=== PATIENT | female | born 1995 | race African-American/Black ===

== ENCOUNTER 2018-06-29 09:31 | Emergency (ER) | payer MEDICAID ==
[~2018-06-29] VITALS: Ht 167.6 cm; Wt 54.0 kg
[2018-06-29] MEDS ORDERED: NKM (09:37)
[2018-06-29] MEDS ORDERED: DiphenhydrAMINE 50mg/ml Inj IVP ONE (10:00)
[2018-06-29] MEDS ORDERED: Metoclopramide 10mg/2ml Inj IVP ONE (10:00)
[2018-06-29] MEDS ORDERED: Morphine Sulfate 2mg/ml Inj(IV/IM USE ONLY) IVP ONE (10:00)
--- NOTE | 2018-06-29 10:09 | Emergency Room Report ---
History of Present Illness General Chief Complaint: Complications Source: Patient Present Illness HPI Patient presents with suprapubic pain. This has been going on for at least 2 days. She's been waking up with nausea also. She's not taking any medication. She states the pain is 10/10. There's been no bleeding. She did a test is positive recently. She does have a child that's 1 years old at home she denies any dysuria or discharge. She does not know her blood type. No chest pain, palpitations, vomiting, diarrhea, dysuria, shortness of breath, depression, visual changes, headache. Allergies: Coded Allergies: No Known Allergies (Unverified , 06/29/18) Patient History Past Medical History: see triage record Social History Narrative with boyfriend Last Menstrual Period: PT. UNSURE Now: Yes - PT. UNSURE HOW FAR ALONG SHE IS Reviewed Nursing Documentation: PMH: Agreed; PSxH: Agreed Nursing Documentation-PMH Past Medical History: No Stated History Review of Systems All Other Systems: negative except mentioned in HPI Physical Exam Vital Signs Date Time Temp Pulse Resp B/P (MAP) Pulse Ox O2 Delivery O2 Flow Rate FiO2 06/29/18 09:34 98.4 69 14 117/60 100 Room Air Sp02 EP Interpretation: reviewed, normal General Appearance: well appearing, no apparent distress, GCS 15 Head: normocephalic Eyes: bilateral eye normal inspection, bilateral eye PERRL ENT: moist mucus membranes Neck: supple Respiratory: lungs clear, normal breath sounds Cardiovascular #1: regular rate, rhythm Cardiovascular #2: 2+ radial (R) Gastrointestinal: normal inspection, normal bowel sounds, no mass, non- distended, tenderness - Suprapubic more on the left Genitourinary: no CVA tenderness, deferred - For ultrasound Musculoskeletal: back normal, gait/station normal, normal range of motion Neurologic: alert, oriented x3, nystagmus Psychiatric: mood/affect normal Skin: normal inspection, warm/dry Medical Decision Making Diagnostic Impression: Primary Impression: Pelvic pain Additional Impression: Threatened miscarriage ER Course Patient presents with suprapubic pain. Differential includes ectopic, urinary tract infection, early , constipation, ovarian cyst amongst others. Evaluation will be with labs, urinalysis and also ultrasound. The patient be treated with IV analgesics and hydration. Patient initially was refusing blood because she didn't want an IV. I discussed this with her and she agreed to have an IV done. Labs remarkable for normal white count and quant hCG of 4000. Urinalysis clear. Blood type a positive. Ultrasound with 4.5 mm fluid collection with double decidual sac in the uterus consistent with an intrauterine moderate free fluid in the cul-de- sac. 1.2 cm dominant follicle small cyst in the left ovary. Patient's pain is improved with treatment. Discussed ultrasound findings and the need for follow-up with the patient. Patient stable for outpatient observation and treatment. Laboratory Tests Test 06/29/18 10:10 White Blood Count 8.7 K/UL (4.8-10.8) Red Blood Count 5.18 M/UL (4.20-5.40) Hemoglobin 13.6 G/DL (12.0-16.0) Hematocrit 43.6 % (37.0-47.0) Mean Corpuscular Volume 84 FL (80-99) Mean Corpuscular Hemoglobin 26.3 PG (27.0-31.0) L Mean Corpuscular Hemoglobin Concent 31.2 G/DL (32.0-36.0) L Red Cell Distribution Width 14.9 % (11.6-14.8) H Platelet Count 391 K/UL (150-450) Mean Platelet Volume 8.1 FL (6.5-10.1) Neutrophils (%) (Auto) 70.7 % (45.0-75.0) Lymphocytes (%) (Auto) 21.6 % (20.0-45.0) Monocytes (%) (Auto) 4.5 % (1.0-10.0) Eosinophils (%) (Auto) 2.2 % (0.0-3.0) Basophils (%) (Auto) 1.1 % (0.0-2.0) Urine Color Pale yellow Urine Appearance Clear Urine pH 5 (4.5-8.0) Urine Specific [place] 1.025 (1.005-1.035) Urine Protein Negative (NEGATIVE) Urine Glucose (UA) Negative (NEGATIVE) Urine Ketones Negative (NEGATIVE) Urine Blood Negative (NEGATIVE) Urine Nitrite Negative (NEGATIVE) Urine Bilirubin Negative (NEGATIVE) Urine Urobilinogen Normal MG/DL (0.0-1.0) Urine Leukocyte Esterase 1+ (NEGATIVE) H Urine RBC 0-2 /HPF (0 - 2) Urine WBC 2-4 /HPF (0 - 2) Urine Squamous Epithelial Cells Few /LPF (NONE/OCC) Urine Bacteria Few /HPF (NONE) Urine Mucus Moderate /LPF (NONE/OCC) H Sodium Level 137 MMOL/L (136-145) Potassium Level 3.5 MMOL/L (3.5-5.1) Chloride Level 101 MMOL/L (98-107) Carbon Dioxide Level 26 MMOL/L (21-32) Anion Gap 10 mmol/L (5-15) Blood Urea Nitrogen 16 mg/dL (7-18) Creatinine 0.7 MG/DL (0.55-1.30) Estimate Glomerular Filtration Rate > 60 mL/min (>60) Glucose Level 79 MG/DL (74-106) Calcium Level 9.4 MG/DL (8.5-10.1) Total Bilirubin 0.3 MG/DL (0.2-1.0) Aspartate Amino Transferase (AST) 14 U/L (15-37) L Alanine Aminotransferase (ALT) 18 U/L (12-78) Alkaline Phosphatase 58 U/L (46-116) Total Protein 9.0 G/DL (6.4-8.2) H Albumin 4.1 G/DL (3.4-5.0) Globulin 4.9 g/dL Albumin/Globulin Ratio 0.8 (1.0-2.7) L Lipase 150 U/L (73-393) Human Chorionic Gonadotropin, Quant 4780 mIU/mL (1-6) H CT/MRI/US Diagnostic Results CT/MRI/US Diagnostic Results : Imaging Test Ordered: pelvic u/s Impression 1. Small 4.6 mm fluid collection with double decidual sac sign in the uterus consistent with an intrauterine /gestational sac, too small to date. No pole or yolk sac seen. Differential includes (1) early intrauterine , (2) incomplete , or (3), blighted ovum. Correlate with serial BHCG's and f/u imaging. 2. Moderate free fluid in the cul-de-sac. 3. 1.2 cm dominant follicle/small cyst of the left ovary. Last Vital Signs Date Time Temp Pulse Resp B/P (MAP) Pulse Ox O2 Delivery O2 Flow Rate FiO2 06/29/18 13:00 98.4 14 117/60 100 Room Air 06/29/18 09:34 69 Status: improved Disposition: HOME, SELF-CARE Condition: Improved Scripts Acetaminophen With Codeine (T#3) (TYLENOL #3 TAB*) Y Tab 1 TAB ORAL Q6HR PRN for severe pain, #10 TAB Prov: Bora Chin MD 06/29/18 Acetaminophen (Tylenol) 325 Mg Tablet 650 MG ORAL Q6H PRN for Prn Pain/Headache/Temp > 101, #20 TAB 0 Refills Prov: Bora Chin MD 06/29/18 Bora Chin MD Jun 29, 2018 10:09
--- NOTE | 2018-06-29 10:37 | NUR ---
ED Nurse Note: PER PT. RECENTLY FOUND OUT THAT SHE WAS . HAS BEEN HAVING ABD PAIN X 4-5 DAYS. NO DISCHARGE REPORTED.PT STATED SHE'S BEEN HAVING 10/10 CRAMPING/ STABBING LOWER ABDOMINAL PAIN. SEEN BY ALICIA. PT ABLE TO GIVE URINE AND BLOOD DRAWN AND WAS SENT TO LAB. WILL CONTINUE TO MONITOR.
[2018-06-29 10:39] LABS: APPEARANCE,URINE CLEAR; BILIRUBIN, URINE NEGATIVE (NEGATIVE); COLOR,URINE PALE YELLOW; GLUCOSE, URINE (UA) NEGATIVE (NEGATIVE); KETONES,URINE NEGATIVE (NEGATIVE); LEUKOCYTE ESTERASE ,URINE 1+ (NEGATIVE); NITRITE,URINE NEGATIVE (NEGATIVE); PH,URINE 5 (4.5-8.0); PROTEIN,URINE NEGATIVE (NEGATIVE); UROBILINOGEN,URINE NORMAL MG/DL (0.0-1.0)
[2018-06-29 10:40] LABS: BASOPHILS % (AUTO) 1.1 % (0.0-2.0); EOSINOPHILS % (AUTO) 2.2 % (0.0-3.0); HEMATOCRIT 43.6 % (37.0-47.0); HEMOGLOBIN 13.6 G/DL (12.0-16.0); LYMPHOCYTES % (AUTO) 21.6 % (20.0-45.0); MEAN CORPUSCULAR VOLUME 84 FL (80-99); MONOCYTES % (AUTO) 4.5 % (1.0-10.0); NEUTROPHILS % (AUTO) 70.7 % (45.0-75.0); PLATELET COUNT 391 K/UL (150-450); RED BLOOD COUNT 5.18 M/UL (4.20-5.40); RED CELL DISTRIBUTION WIDTH 14.9 % (11.6-14.8); WHITE BLOOD COUNT 8.7 K/UL (4.8-10.8)
[2018-06-29 10:50] LABS: ANION GAP 10 mmol/L (5-15); BLOOD UREA NITROGEN 16 mg/dL (7-18); CALCIUM 9.4 MG/DL (8.5-10.1); CARBON DIOXIDE 26 MMOL/L (21-32); CHLORIDE 101 MMOL/L (98-107); CREATININE 0.7 MG/DL (0.55-1.30); POTASSIUM 3.5 MMOL/L (3.5-5.1); SODIUM 137 MMOL/L (136-145)
[2018-06-29 10:54] LABS: ALANINE AMINOTRANSFERASE 18 U/L (12-78); ALBUMIN 4.1 G/DL (3.4-5.0); ALBUMIN/GLOBULIN RATIO 0.8 (1.0-2.7); ALKALINE PHOSPHATASE 58 U/L (46-116); ASPARTATE AMINO TRANSFERASE 14 U/L (15-37); BILIRUBIN,TOTAL 0.3 MG/DL (0.2-1.0)
--- NOTE | 2018-06-29 11:00 | NUR ---
ED Nurse Note: pt went to [facility] with tech
--- NOTE | 2018-06-29 12:48 | Diagnostic Imaging Report ---
EXAM: US First Trimester, Transabdominal US , Transvaginal CLINICAL HISTORY: ABD PAIN TECHNIQUE: Real-time transabdominal and transvaginal obstetrical ultrasound of the maternal pelvis and a first trimester with image documentation. Transvaginal imaging was used for better evaluation of the fetus and adnexa. COMPARISON: No relevant prior studies available. FINDINGS: Gestation: Small 4.6 mm fluid collection with double decidual sac sign in the uterus consistent with an intrauterine /gestational sac, too small to date. No pole or yolk sac seen. Placenta/amniotic fluid: Cannot be adequately evaluated due to the early gestational age. Uterus/cervix: Unremarkable. No myometrial mass. Ovaries: 1.2 cm dominant follicle/small cyst of the left ovary. Right ovary measures 2.35 and 1.4 x 1.97 cm. Left ovary measures 2.71 x 2.13 x 3.02 cm. No mass. Free fluid: Moderate free fluid in the cul-de-sac. IMPRESSION: 1. Small 4.6 mm fluid collection with double decidual sac sign in the uterus consistent with an intrauterine /gestational sac, too small to date. No pole or yolk sac seen. Differential includes (1) early intrauterine , (2) incomplete , or (3), blighted ovum. Correlate with serial BHCG's and f/u imaging. 2. Moderate free fluid in the cul-de-sac. 3. 1.2 cm dominant follicle/small cyst of the left ovary.
[2018-06-29] MEDS ORDERED: ACETAMINOPHEN-1 EAC1 ORAL (12:57)
[2018-06-29] MEDS ORDERED: TYLENOL325 MG ORAL (12:57)
[2018-06-29 13:00] VITALS: BP 117/60
--- NOTE | 2018-06-29 13:00 | NUR ---
ER DISCHARGE NOTE: Patient is cleared to be discharged per ERMD, pt is aox4, on room air, with stable vital signs. pt was given dc and prescription instructions, pt was able to verbalize understanding, pt id band and iv site removed without complications. pt is able to ambulate with steady gait. pt took all belongings.
== END 2018-06-29 13:00 | disposition home or self-care (01) ==
LOC: EMR 09:50
DX: R10.2 Pelvic and perineal pain (principal); O20.0 Threatened abortion; Z3A.00 Weeks of gestation of pregnancy not specified; O34.80 Maternal care for other abnormalities of pelvic organs, unspecified trimester; N83.02 Follicular cyst of left ovary
CPT/HCPCS: 36415; 76830; 76856; 80053; 81003; 83690; 84702; 85025; 86900; 86901; 96361; 96374; 96375; 99284; J1200; J2270; J2765